=== PATIENT | female | born 1960 ===

== ENCOUNTER 2017-05-06 17:04 | Emergency (ER) | payer OTHER ==
[2017-05-06 17:18] VITALS: BP 118/74
--- NOTE | 2017-05-06 18:12 | RAD ---
INDICATION: Back pain COMPARISON: None TECHNIQUE: Routine 2 view imaging was performed FINDINGS: Bones: There are no acute bony findings. There are no significant osteoarthritic findings. Alignment: There is mild kyphosis Disc spaces: The disc spaces are well-maintained Soft tissues: There are no soft tissue abnormalities. IMPRESSION: MILD KYPHOSIS. NO ACUTE BONY FINDINGS.
--- NOTE | 2017-05-06 18:12 | RAD ---
INDICATION: Fall COMPARISON: None TECHNIQUE: AP, lateral, and odontoid views were acquired FINDINGS: Bones: There are no acute bony findings. There are arthritic changes with advanced degenerative disc disease with narrowing, endplate sclerosis, and facet arthropathy at C5-C6. Craniocervical junction: The odontoid and atlantodental interval are normal. Alignment: Normal Disc spaces: The remaining disc spaces are well-maintained Soft tissues: The prevertebral soft tissues are normal. IMPRESSION: ADVANCED DEGENERATIVE DISC DISEASE C5-C6. NO ACUTE FINDINGS.
--- NOTE | 2017-05-06 18:12 | RAD ---
INDICATION: Back pain. Fall COMPARISON: None TECHNIQUE: Standing AP and lateral imaging was performed . FINDINGS: Bones: There are no acute bony findings. There is facet arthropathy at L5-S1. There is degenerative disc disease at L4-L5.. Alignment: 2 mm anterolisthesis of L5 relative to L4 and S1. This is likely on a degenerative basis Disc spaces: There is moderate narrowing at C4-C5. The remaining disc spaces are well-maintained Soft tissues: There are no soft tissue abnormalities. IMPRESSION: DEGENERATIVE CHANGES DESCRIBED. NO ACUTE FINDINGS
--- NOTE | 2017-05-06 18:39 | UC ---
Ken Miramontes Tecjoon, scribed for Rudy Ramos MD on 05/06/17 at 1736 . Back Pain HPI - HPI Summary HPI Summary: This patient is a 56 year old female presenting [place] [facility] [place] a chief complaint of back pains s/p a mechanical fall approx. 1645 today. Patient states she is here to make sure her back is ok. Patient denies LOC or head trauma during fall. The pain is described as aching. The pain is rated 3/10 in severity. Symptoms aggravated by movement. Symptoms alleviated by nothing. Patient additionally reports mild neck pain. Patient denies wrist pain, knee pain, SOB. - History of Current Complaint Chief Complaint: UCBackPain Stated Complaint: INJURIES FROM FALL Time Seen by Provider: 05/06/17 17:26 Hx Obtained From: Patient Hx Last Menstrual Period: ENDOMETRIAL ABLATION Onset/Duration: Sudden Onset - s/p mechanical fall, Lasting Hours - 1, Still Present Timing: Constant, Lasting Hours - 1 Severity Currently: Mild Pain Intensity: 3 Pain Scale Used: 0-10 Numeric Back Pain: Is Diffuse Character: Aching Aggravating Factor(s): Movement Alleviating Factor(s): Nothing Associated Signs And Symptoms: Positive: Negative - wrist pain, knee pain, SOB, Other - mild neck pain - Allergies/Home Medications Allergies/Adverse Reactions: Allergies Allergy/AdvReac Type Severity Reaction Status Date / Time Ciprofloxacin [From Cipro] Allergy Unknown Unknown Verified 05/06/17 17:19 Reaction Details IV CONTRAST DYE Allergy Intermediate Swelling Uncoded 05/06/17 17:19 PMH/Surg Hx/FS Hx/Imm Hx - Additional Past Medical History Additional PMH: MS Previously Healthy: No Neurological History: Seizures - Surgical History Surgical History: Yes Surgery Procedure, Year, and Place: ENDOMETRIAL ABLATION, 2 ABLATIONS OF TACHYCARDIA, SEVERED FINGER NERVE REPAIR - Family History Known Family History: Negative: Hypertension - Social History Lives: With Family Alcohol Use: None Substance Use Type: None Smoking Status (MU): Never Smoked Tobacco Review of Systems Constitutional: Negative - fever Respiratory: Negative - SOB Musculoskeletal: Negative - wrist pain, knee pain, Other: - back pain Neurological: Other - mild neck pain All Other Systems Reviewed And Are Negative: Yes Physical Exam Triage Information Reviewed: Yes Vital Signs: Initial Vital Signs Temp 99.5 F 05/06/17 17:13 Pulse 73 05/06/17 17:13 Resp 14 05/06/17 17:13 BP 118/74 05/06/17 17:13 Pulse Ox 100 05/06/17 17:13 - Additional Comments General: well-appearing, no pain distress Skin: warm, color reflects adequate perfusion, dry Head: normal Eyes: EOMI, DEE ENT: normal Neck: Midline neck tenderness Respiratory: CTA, breath sounds present Cardiovascular: RRR Abdomen: soft, nontender Bowel: present Spine: Lower thoracic ecchymosis. Lower thoracic tenderness and lower lumbar tenderness Musculoskeletal: normal, strength/ROM intact Neurological: normal, sensory/motor intact, A&O x3 Psychological: affect/mood appropriate Diagnostics - Radiology T-Spine XR Xray Interpretation: No Acute Changes - IMPRESSION: MILD KYPHOSIS. NO ACUTE BONY FINDINGS. physician has reviewed this radiology report. Radiology Interpretation Completed By: Radiologist L-Spine XR Xray Interpretation: No Acute Changes - IMPRESSION: DEGENERATIVE CHANGES DESCRIBED. NO ACUTE FINDINGS UC physician has reviewed this radiology report. Radiology Interpretation Completed By: Radiologist C-Spine XR Xray Interpretation: No Acute Changes - IMPRESSION: ADVANCED DEGENERATIVE DISC DISEASE C5-C6. NO ACUTE FINDINGS. physician has reviewed this radiology report. Radiology Interpretation Completed By: Radiologist Back Pain Course/Dx - Course Course Of Treatment: DISCUSSED RESULTS WITH PATIENT. F/U PMD; RETURN IF WORSE. - Differential Dx/Diagnosis Provider Diagnoses: CERVICAL, THORACIC AND LUMBAR BACK STRAIN Discharge - Discharge Plan Condition: Stable Disposition: HOME Patient Education Materials: Cervical Strain (ED), Low Back Strain (ED), Thoracic Back Strain (ED) Referrals: Steph Mcguire MD [Primary Care Provider] - Additional Instructions: FOLLOW UP WITH YOUR DOCTOR. GET RECHECKED FOR ANY WORSENING OF YOUR CONDITION OR QUESTIONS OR CONCERNS. The documentation as recorded by the Ken pinzon Tecjoon accurately reflects the service I personally performed and the decisions made by me, Rudy Ramos MD.
== END 2017-05-06 18:46 | disposition home or self-care (01) ==
LOC: UCEAST 17:04
DX: S16.1XXA Strain of muscle, fascia and tendon at neck level, initial encounter (principal); S39.012A Strain of muscle, fascia and tendon of lower back, initial encounter; S29.012A Strain of muscle and tendon of back wall of thorax, initial encounter; M40.204 Unspecified kyphosis, thoracic region; M47.896 Other spondylosis, lumbar region; M50.322 Other cervical disc degeneration at C5-C6 level; Z91.041 Radiographic dye allergy status; Z88.1 Allergy status to other antibiotic agents; W19.XXXA Unspecified fall, initial encounter; Y92.9 Unspecified place or not applicable
CPT/HCPCS: 72040; 72070; 72100; 81003; 87086; 99211; G0463